=== PATIENT | male | born 1950 | race Caucasian/White ===

== ENCOUNTER → 2017-01-14 | Outpatient (CLI) | payer OTHER ==
[~2017-01-14] MED LIST: ASPI81TA28 PO; B-COTAB18 PO; CHOL1000 PO; FOLI800T PO; HYDR200T5 PO; LISI-461 PO; MAGN1CAP4 PO; NEBI2.5T2 PO; OMEG10007 PO; POTA99TA PO; PRLSR20 PO; SILD100T PO; SIMV80TA2 PO
[2017-01-14 15:48] LABS: BASO % 0.3 %; BASO ABS # 0.02 K/uL (0-0.2); COMPLETE YES; EOS % 0.7 %; HEMATOCRIT 43.1 % (42-52); IG% 0.2 %; LYMPH % 19.7 %; LYMPH ABS # 1.17 K/uL (1.2-3.4); MEAN CELL VOLUME 98.4 fL (80-100); MEAN CORPUSCULAR HEMOGLOBIN 31.5 pg (25-34); MEAN PLATELET VOLUME 10.3 fL (7.4-10.4); MONO % 5.7 %; NEUT % 73.4 %; PLATELET COUNT 222 K/uL (130-400); RED BLOOD COUNT 4.38 M/uL (4.7-6.1); WHITE BLOOD COUNT 5.93 K/uL (4.8-10.8)
[2017-01-14 16:58] LABS: BLOOD UREA NITROGEN 21 mg/dl (7-18); BUN/CREATININE RATIO 21.5 (10-20); CALCIUM 8.7 mg/dl (8.5-10.1); CARBON DIOXIDE 26 mmol/L (21-32); CHLORIDE 111 mmol/L (98-107); CREATININE 0.98 mg/dl (0.60-1.40); GLUCOSE 96 mg/dl (70-99); POTASSIUM 4.2 mmol/L (3.5-5.1); SODIUM 144 mmol/L (136-145)
== END | disposition home or self-care (01) ==
LOC: C.CPL 14:44
PROVIDERS: ATTEND Orthopaedic Surgery
DX: M75.121 Complete rotator cuff tear or rupture of right shoulder, not specified as traumatic (principal); Z01.812 Encounter for preprocedural laboratory examination; Z01.810 Encounter for preprocedural cardiovascular examination

== ENCOUNTER → 2017-01-28 | Day surgery (SDC) | payer OTHER ==
[2017-01-14 09:50] VITALS: Ht 180.3 cm; Wt 86.4 kg
[~2017-01-28] VITALS: Ht 180.3 cm; Wt 86.4 kg
[~2017-01-28] MED LIST changes: +ATROPINE SULFATE 0.1 MG/ML 5ML SYR IV PRN; +BUPIVACAINE/EPINEPHRINE 0.25% 1:200,000 30 ML VIAL ONE; +CEFAZOLIN 2000 MG/60 ML D5W IV SCH; +EpHEDrine SULFATE INJ 50 MG/ML AMP IV PRN; +EpINEphrine INJ 1MG/ML AMP 1 MG/ML AMP ONE; +FENTANYL CITRATE INJ 50 MCG/1 ML 2 ML VIAL ONE; +GLYCOPYRROLATE INJ 0.2 MG/ML VIAL ONE; +HYDR2TAB48 PO; +HYDROmorphone INJ 1 MG/ML SYR IV PRN; +HydrALAZINE HCL 20 MG/ML VIAL IV. PRN; +HydrALAZINE HCL 20 MG/ML VIAL ONE; +KETO10TA PO; +KETOROLAC TROMETHAMINE 30 MG/ML VIAL IV PRN; +KETOROLAC TROMETHAMINE 30 MG/ML VIAL IV STA; +KETOROLAC TROMETHAMINE 30 MG/ML VIAL ONE; +LACTATED RINGER'S 1000ML 1,000 ML IV SCH; +LIDOCAINE HCL 1% MPF 2 ML VIAL ONE; +LIDOCAINE HCL 2% 2 ML VIAL (20MG/ML) ONE; +MIDAZOLAM HCL 1 MG/ML 2ML VIAL IV ONE; +MIDAZOLAM HCL 1 MG/ML 2ML VIAL ONE; +NEOSTIGMINE METHYLSULFATE 5 MG/5 ML SYR ONE; +NURSING VERBAL MED ORDER ONE; +ONDANSETRON INJ 2 MG/ML 2 ML VIAL ONE; +OXYCODONE/ACETAMINOPHEN 5-325 TAB PO PRN; +PROPOFOL IV EMULSION 10 MG/ML 20 ML VIAL IV ONE; +ROCURONIUM BROMIDE 10 MG/ML 5 ML VIAL ONE; +ROPIVACAINE 0.5% 5 MG/ML 30 ML VIAL ONE; +SODIUM CHLORIDE 0.9% 1000ML 1,000 ML IV SCH; +SODIUM CHLORIDE 0.9% INJ 10 ML VIAL ONE; +Tumeric
--- NOTE | 2017-01-28 06:40 | History & Physical Bridge Note ---
H&P Re-Evaluation Bridge Note: I have examined the patient, reviewed the History & Physical and in the interval since the performance of the History & Physical I have noted the following changes of clinical significance: No changes noted
--- NOTE | 2017-01-28 09:50 | [facility] Post Operative Brief Note ---
Immediate Operative Summary Operative Date Jan 28, 2017. Pre-Operative Diagnosis Right Shoulder Medium Rotator Cuff Tear Post-Operative Diagnosis Same Procedure(s) Performed Right Shoulder Arthroscopy, Medium Rotator Cuff Repair, Acromioplasty, Biceps Tenodesis Surgeon Dr. Mcgovern Assistant Manager/Embalmer Surgeon(s) Tanner Rose PA-C Estimated Blood Loss 5 ml Findings as above Specimens None Complication(s) None Disposition Recovery Room / PACU
--- NOTE | 2017-01-28 09:50 | Discharge Instructions-SurgCtr ---
Discharge Instructions Date of Service Jan 28, 2017. Visit Reason for Visit: Full Thickness Rotator Cuff Tear Discharge Discharge Diagnosis / Problem: SAME VAL Discharge Goals Goal(s): Decrease discomfort, Improve function Medications Stopped Medications Name(s): Fish Oil and ASA last dose 1 week ago Restart Stopped Medication(s): MAY RESTART 01/28/2017 Activity Recommendations Activity Limitations: as noted below Lifting Limitations: until after follow-up appointment Exercise/Sports Limitations: until after follow-up appointment Shower/Bathe: tomorrow Anesthesia . Post Anesthesia Instructions: If you have had General Anesthesia or IV Sedation: * Do not drive today. * Resume driving when surgeon permits. * Do not make important decisions or sign legal documents today. * Call surgeon for: 1. Temperature elevations greater than 101 degrees F. 2. Uncontrollable pain. 3. Excessive bleeding. 4. Persistent nausea and vomiting. 5. Medication intolerance (nausea, vomiting or rash). * For nausea and vomiting use only clear liquids such as: tea, soda, bouillon until nausea subsides, then gradually increase diet as tolerated. * If you have any concerns or questions, call your surgeon's office. If physician is unavailable and it is an emergency, call 911 or go to the nearest emergency room. . Instructions / Follow-Up Instructions / Follow-Up MEDICATIONS: * Resume previous medications unless instructed otherwise by your surgeon. * Always take pain medication on a full stomach or with food to avoid upset stomach. * Do not drink alcohol or drive while taking narcotics. * Ibuprofen or Tylenol may be taken if narcotic not needed. SPECIAL CARE INSTRUCTIONS: __ None _X_ Keep extremity elevated and iced x 48 hours; apply ice 20-30 minutes 8-10 times/day. May remove at night. __ Sling __24 hrs/day __ Remove at night _X_ Shoulder Immobilizer (MAY REMOVE AFTER 48 HOURS ONLY TO SHOWER AND FOR THERAPY) _X_ 24 hrs/day __ Remove at night _X_ Dressing __ Maintain until seen in office, may shower with plastic over site _X_ Remove dressings in 24-48 hours and then may shower _X_ Cover incisions with band-aids after showering __ Do not remove steri-strips Call physician if chills or temperature rises above 102 degrees or pain unrelieved by prescribed pain medications at . . Diet Recommendations Home Diet: no limitations Fluid Restriction: None Procedures Procedures Performed: Right Shoulder Arthroscopy, Medium Rotator Cuff Repair, Acromioplasty, Biceps Tenodesis Pending Studies Studies pending at discharge: no Work Instructions Return To Work: after follow-up Lifting Limitations: NO LIFTING WITH RIGHT ARM Medical Emergencies . Who to Call and When: Medical Emergencies: If at any time you feel your situation is an emergency, please call 911 immediately. . Non-Emergent Contact Non-Emergency issues call your: Primary Care Provider Call Non-Emergent contact if: you have a fever, temperature is above 101.5 . . "Provider Documentation" section prepared by Fahad Rose. .
[2017-01-28] MEDS: HYDROmorphone INJ 1 MG/ML SYR IV PRN ×4 (10:04→10:45)
[2017-01-28 12:15] VITALS: TEMP 36.5
--- NOTE | 2017-01-28 12:32 | Anesthesia Progress Nt - [facility] ---
Anesthesia Post Op Note Date & Time Jan 28, 2017 at 12:31 Vital Signs Pain Intensity: 5 Vital Signs Past 12 Hours Date Time Temp Pulse Resp B/P (MAP) Pulse Ox O2 Delivery O2 Flow Rate FiO2 01/28/17 12:01 79 14 01/28/17 12:01 36.4 78 12 147/88 94 Room Air 01/28/17 12:01 76 14 147/88 93 01/28/17 11:56 85 14 01/28/17 11:56 85 14 146/93 94 01/28/17 11:51 74 11 01/28/17 11:51 72 11 154/100 92 01/28/17 11:47 140/108 01/28/17 11:46 81 13 93 01/28/17 11:46 83 13 01/28/17 11:41 88 25 188/111 90 01/28/17 11:41 75 25 01/28/17 11:36 76 17 166/101 95 01/28/17 11:36 76 17 01/28/17 11:31 71 17 173/111 94 01/28/17 11:31 71 17 01/28/17 11:26 72 16 162/103 94 01/28/17 11:26 72 16 01/28/17 11:21 72 17 145/99 95 01/28/17 11:21 72 17 01/28/17 11:16 62 21 01/28/17 11:16 62 21 160/105 95 01/28/17 11:11 74 22 01/28/17 11:11 74 22 168/109 96 01/28/17 11:06 67 12 01/28/17 11:06 68 12 147/98 97 01/28/17 11:01 60 12 174/102 95 01/28/17 11:01 62 12 01/28/17 10:56 64 13 162/111 97 01/28/17 10:56 64 13 01/28/17 10:51 60 12 167/100 96 01/28/17 10:51 61 12 01/28/17 10:46 70 14 161/104 98 01/28/17 10:46 69 14 01/28/17 10:41 58 10 01/28/17 10:41 57 10 170/100 97 01/28/17 10:36 57 13 171/103 01/28/17 10:36 13 01/28/17 10:31 65 18 174/104 97 01/28/17 10:31 65 18 17 10:26 60 15 149/104 80 17 10:26 57 15 01/28/17 10:21 62 24 17 10:21 60 24 169/104 96 01/28/17 10:16 56 20 01/28/17 10:16 55 20 171/100 97 01/28/17 10:11 51 18 169/100 97 01/28/17 10:11 52 18 17 10:06 53 18 159/97 99 01/28/17 10:06 54 18 01/28/17 10:01 54 19 166/100 97 01/28/17 10:01 54 19 01/28/17 09:56 56 16 01/28/17 09:56 54 16 153/98 97 01/28/17 09:51 55 19 161/94 98 01/28/17 09:51 56 19 01/28/17 09:47 159/95 01/28/17 09:46 36.0 86 24 159/95 97 Room Air 4 Mask 01/28/17 08:06 0 01/28/17 08:05 56 01/28/17 08:05 56 27 99 01/28/17 08:04 164/108 01/28/17 08:01 140/101 01/28/17 08:00 55 01/28/17 08:00 55 28 98 01/28/17 07:56 171/112 01/28/17 07:55 56 01/28/17 07:55 56 26 98 01/28/17 07:51 169/103 01/28/17 07:50 58 01/28/17 07:50 58 23 98 01/28/17 07:46 163/101 01/28/17 07:45 64 30 100 01/28/17 07:45 66 01/28/17 07:41 147/94 01/28/17 07:40 49 17 07:35 52 01/28/17 07:30 61 01/28/17 07:25 63 01/28/17 07:20 55 01/28/17 07:15 49 01/28/17 07:15 56 95 01/28/17 07:10 48 01/28/17 06:40 36.9 51 16 168/97 (120) 95 Room Air Notes Mental Status: alert / awake / arousable, participated in evaluation Pt Amnestic to Procedure: Yes Nausea / Vomiting: adequately controlled Pain: adequately controlled Airway Patency, RR, SpO2: stable & adequate BP & HR: stable & adequate Hydration State: stable & adequate Anesthetic Complications: no major complications apparent
[2017-01-28 12:56] VITALS: BP 151/91; PULSE 82; O2SAT 94
== END | disposition home or self-care (01) ==
LOC: X.SURG 01-14 14:38
PROVIDERS: ATTEND Orthopaedic Surgery
DX: M75.121 Complete rotator cuff tear or rupture of right shoulder, not specified as traumatic (principal); K21.9 Gastro-esophageal reflux disease without esophagitis; Z96.659 Presence of unspecified artificial knee joint; Z82.49 Family history of ischemic heart disease and other diseases of the circulatory system

== ENCOUNTER 2017-10-24 07:49 | Emergency (ER) | payer OTHER ==
[~2017-10-24] VITALS: Ht 177.8 cm; Wt 87.6 kg
[~2017-10-24 07:49] MED LIST changes: -ATROPINE SULFATE 0.1 MG/ML 5ML SYR IV PRN; -BUPIVACAINE/EPINEPHRINE 0.25% 1:200,000 30 ML VIAL ONE; -CEFAZOLIN 2000 MG/60 ML D5W IV SCH; -EpHEDrine SULFATE INJ 50 MG/ML AMP IV PRN; -EpINEphrine INJ 1MG/ML AMP 1 MG/ML AMP ONE; -FENTANYL CITRATE INJ 50 MCG/1 ML 2 ML VIAL ONE; -GLYCOPYRROLATE INJ 0.2 MG/ML VIAL ONE; -HYDR2TAB48 PO; -HYDROmorphone INJ 1 MG/ML SYR IV PRN; -HydrALAZINE HCL 20 MG/ML VIAL IV. PRN; -HydrALAZINE HCL 20 MG/ML VIAL ONE; -KETO10TA PO; -KETOROLAC TROMETHAMINE 30 MG/ML VIAL IV PRN; -KETOROLAC TROMETHAMINE 30 MG/ML VIAL IV STA; -KETOROLAC TROMETHAMINE 30 MG/ML VIAL ONE; -LACTATED RINGER'S 1000ML 1,000 ML IV SCH; -LIDOCAINE HCL 1% MPF 2 ML VIAL ONE; -LIDOCAINE HCL 2% 2 ML VIAL (20MG/ML) ONE; -MIDAZOLAM HCL 1 MG/ML 2ML VIAL IV ONE; -MIDAZOLAM HCL 1 MG/ML 2ML VIAL ONE; -NEOSTIGMINE METHYLSULFATE 5 MG/5 ML SYR ONE; -NURSING VERBAL MED ORDER ONE; -ONDANSETRON INJ 2 MG/ML 2 ML VIAL ONE; -OXYCODONE/ACETAMINOPHEN 5-325 TAB PO PRN; -PROPOFOL IV EMULSION 10 MG/ML 20 ML VIAL IV ONE; -ROCURONIUM BROMIDE 10 MG/ML 5 ML VIAL ONE; -ROPIVACAINE 0.5% 5 MG/ML 30 ML VIAL ONE; -SODIUM CHLORIDE 0.9% 1000ML 1,000 ML IV SCH; -SODIUM CHLORIDE 0.9% INJ 10 ML VIAL ONE
[2017-10-24 07:55] VITALS: TEMP 36.8; Ht 177.8 cm; Wt 87.6 kg
[2017-10-24] MEDS ORDERED: OPTIRAY 320 IV PRN (08:30)
[2017-10-24 08:44] LABS: EOS % 0.4 %; EOS ABS # 0.04 K/uL (0-0.5); HEMATOCRIT 46.4 % (42-52); HEMOGLOBIN 15.8 g/dL (14.0-18.0); LYMPH % 15.5 %; LYMPH ABS # 1.47 K/uL (1.2-3.4); MEAN CELL VOLUME 95.5 fL (80-100); MEAN CORPUSCULAR HEMOGLOBIN 32.5 pg (25-34); MEAN CORPUSCULAR HGB CONC 34.1 g/dl (32-36); MEAN PLATELET VOLUME 9.9 fL (7.4-10.4); MONO % 6.6 %; MONO ABS # 0.63 K/uL (0.11-0.59); NEUT % 76.4 %; NEUT ABS # 7.25 K/uL (1.4-6.5); PLATELET COUNT 131 K/uL (130-400); RED CELL DISTRIBUTION WIDTH CV 12.9 % (11.5-14.5); RED CELL DISTRIBUTION WIDTH SD 44.2 fL (36.4-46.3); WHITE BLOOD COUNT 9.49 K/uL (4.8-10.8)
--- NOTE | 2017-10-24 08:48 | DIAGNOSTIC IMAGING REPORT ---
CHEST ONE VIEW PORTABLE CLINICAL HISTORY: congestion COMPARISON STUDY: No previous studies for comparison. FINDINGS: The cardiac and mediastinal contours are normal. There is no evidence of focal pulmonary consolidation. There is no evidence of failure. No pleural effusions are visualized.[ There is minimal linear atelectatic change at the left lung base. The right upper lobe appears slightly hyperlucent and underlying emphysema cannot be excluded. IMPRESSION: No active disease in the chest. Electronically signed by: Mychal Fu M.D. 10/24/2017 8:47 AM Dictated Date/Time: 10/24/2017 8:46 AM
[2017-10-24 08:54] LABS: PTT PATIENT 21.9 SECONDS (21.0-31.0)
[2017-10-24 09:00] LABS: CALCIUM 8.2 mg/dl (8.5-10.1); CREATININE 0.98 mg/dl (0.60-1.40); POTASSIUM 3.5 mmol/L (3.5-5.1)
--- NOTE | 2017-10-24 09:43 | DIAGNOSTIC IMAGING REPORT ---
CT ANGIOGRAPHY HEAD COMBO CT DOSE: 725.03 mGy.cm CLINICAL HISTORY: Frontal headaches. History of cerebellar hemangioblastoma. TECHNIQUE: Noncontrast images were obtained the brain. CT angiography was then performed in a dynamic helical fashion during intravenous administration 91 cc of Optiray 320. MIP imaging was performed. A dose lowering technique was utilized adhering to the principles of ALARA. COMPARISON STUDY: None. FINDINGS: Noncontrast studies reveal no intra or extra-axial mass lesions. There is no CT evidence of acute cortical infarction. There is no acute hemorrhage. There are postsurgical changes of a left occipital craniotomy. 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 There are no major intracranial branch occlusions area there are no lesion suspicious for aneurysm. There is no evidence of dural venous sinus thrombosis. IMPRESSION: 1. Postsurgical changes within the left posterior fossa 2. No acute hemorrhage 3. No evidence of aneurysm. No evidence of major intracranial branch occlusion Electronically signed by: Mychal Fu M.D. 10/24/2017 9:42 AM Dictated Date/Time: 10/24/2017 9:38 AM
[2017-10-24] MEDS ORDERED: FRCT/ PO (10:46)
[2017-10-24 11:00] VITALS: BP 122/74; PULSE 72; O2SAT 97
--- NOTE | 2017-10-24 14:33 | EMERGENCY ROOM VISIT NOTE ---
History Report prepared by Mario: Glenys Lyn Under the Supervision of: Dr. Titus Abdullahi M.D. First contact with patient: 08:01 Chief Complaint: HEADACHE Stated Complaint: HEADACHE,PRESSURE History of Present Illness The patient is a 67 year old male who presents to the Emergency Room with complaints of persistent headache starting a couple weeks ago. The headache came on quickly over the first days but not thunderclap in description. He was not doing anything when his headache started. The headache is located behind his eyes bilaterally. He describes the pain as a pressure. He currently rates his discomfort as a 3-4/10 in severity. He reports some temporary relief from Tylenol. He has taken hydromorphone over the past 2 days which relieved his headache. 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 His current headache does not feel similar to the headaches he got with the cancer. He notes that he has been irritable and irrationally emotional recently. He was seen by his PCP and was treated for rebound headaches. He was on dexamethasone to little relief. He reports some brief dizzy spells. He notes that he had diarrhea 3 days ago. He feels like he developed a sinus infection this morning. He states that he had a rash on his arm recently and developed a rash on his leg upon arrival. He notes that he has been clearing brush outside recently. His mouth feels dry. He denies any falls. He notes that he had 2 cold sores 2 weeks ago after the headaches started. He was very concerned that the tumor may have recurred. Pt denies LOC, fevers, chills, diaphoresis, visual changes, neck pain, chest pain, breathing difficulties, nausea, vomiting, abdominal pain, back pain, melena, hematochezia, urinary symptoms, numbness, weakness, lymphadenopathy, or other complaints. Source of History: patient, spouse/significant other Onset: couple weeks ago Position: head Symptom Intensity: 3-4/10 Quality: pressure Timing: other (persistent) Modifying Factors (Relieving): tylenol, other (hydromorphone) Associated Symptoms: + diarrhea, + rash Note: Pt reports irritability, dizzy spells. Review of Systems See HPI for pertinent positives and negatives. A total of ten systems were reviewed and were otherwise negative. Past Medical & Surgical Medical Problems: (1) Hemangioblastoma of brain (2) Hypertension Family History Diabetes mellitus Heart disease Hypertension Social History Smoking Status: Never Smoker Alcohol Use: occasionally Marital Status: Housing Status: lives with significant other Occupation Status: retired Current/Historical Medications Scheduled Aspirin (Aspirin Ec), 81 MG PO QPM B-Complex Vitamins (Vitamin B Complex), 1 TAB PO QAM Cholecalciferol (Vitamin D3), 1 TAB PO BID Fish Oil (Thrall-3), 1 CAP PO BID Folic Acid (Folic Acid), 1 TAB PO QPM Hydroxychloroquine Sulfate (Plaquenil), 400 MG PO QPM Lisinopril (Zestril), 10 MG PO QAM Magnesium Oxide (Magnesium), 1 CAP PO QPM Nebivolol Hcl (Bystolic), 2.5 MG PO QAM Omeprazole (Prilosec), 20 MG PO QAM Potassium (Potassium), 1 TAB PO QPM Sildenafil Citrate (Viagra), 100 MG PO PRN Simvastatin (Zocor), 80 MG PO QPM Scheduled PRN Acetamin/Butalbital/Caffeine (Fioricet), 1 TAB PO Q4 PRN for Pain Miscellaneous Medications [Tumeric] Allergies Coded Allergies: No Known Allergies (Unverified , 10/24/17) Physical Exam Vital Signs Date Time Temp Pulse Resp B/P (MAP) Pulse Ox O2 Delivery O2 Flow Rate FiO2 10/24/17 11:00 72 16 122/74 97 10/24/17 09:40 63 16 131/78 96 Room Air 10/24/17 07:55 36.8 76 16 149/103 96 Room Air Physical Exam GENERAL: Awake, alert, well appearing, no distress HENT: Normocephalic, atraumatic. TM's normal. Oropharynx unremarkable. EYES: PERRL. EOMI. Normal conjunctiva. Sclera non-icteric. NECK: Supple. No nuchal rigidity. FROM. No bruit. RESPIRATORY: Breath sounds equal. No wheezes. No rhonchi. Normal respiratory effort. CARDIAC: Normal rate. Regular rhythm. No murmurs. No rubs. No JVD. GI: Soft, non distended. No tenderness to palpation. No rebound or guarding. No masses. RECTAL: Deferred. MUSCULOSKELETAL: Unremarkable. No edema. No discoloration. Gross motor strength symmetric. NEURO: Cranial nerves 2-12 grossly intact. Normal sensorium. No sensory or motor deficits noted. Speech normal. No pronator drift. Normal rapid alternating movements. Normal heel to chu. SKIN: No jaundice noted. Erythematous patch proximal lateral to the right knee. LYMPH: No adenopathy. Medical Decision & Procedures ER Provider Diagnostic Interpretation: Radiology results as stated below per my review and radiologist interpretation: CHEST ONE VIEW PORTABLE CLINICAL HISTORY: congestion COMPARISON STUDY: No previous studies for comparison. FINDINGS: The cardiac and mediastinal contours are normal. There is no evidence of focal pulmonary consolidation. There is no evidence of failure. No pleural effusions are visualized.[ There is minimal linear atelectatic change at the left lung base. The right upper lobe appears slightly hyperlucent and underlying emphysema cannot be excluded. IMPRESSION: No active disease in the chest. Electronically signed by: Mychal Fu M.D. 10/24/2017 8:47 AM Dictated Date/Time: 10/24/2017 8:[address] ANGIOGRAPHY HEAD COMBO CT DOSE: 725.03 mGy.cm CLINICAL HISTORY: Frontal headaches. History of cerebellar hemangioblastoma. TECHNIQUE: Noncontrast images were obtained the brain. CT angiography was then performed in a dynamic helical fashion during intravenous administration 91 cc of Optiray 320. MIP imaging was performed. A dose lowering technique was utilized adhering to the principles of ALARA. COMPARISON STUDY: None. FINDINGS: Noncontrast studies reveal no intra or extra-axial mass lesions. There is no CT evidence of acute cortical infarction. There is no acute hemorrhage. There are postsurgical changes of a left occipital craniotomy. 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 There are no major intracranial branch occlusions area there are no lesion suspicious for aneurysm. There is no evidence of dural venous sinus thrombosis. IMPRESSION: 1. Postsurgical changes within the left posterior fossa 2. No acute hemorrhage 3. No evidence of aneurysm. No evidence of major intracranial branch occlusion Electronically signed by: Mychal Fu M.D. 10/24/2017 9:42 AM Dictated Date/Time: 10/24/2017 9:38 AM Laboratory Results 10/24/17 08:30 Red Blood Count 4.86, Mean Corpuscular Volume 95.5, Mean Corpuscular Hemoglobin 32.5, Mean Corpuscular Hemoglobin Concent 34.1, Mean Platelet Volume 9.9, Neutrophils (%) (Auto) 76.4, Lymphocytes (%) (Auto) 15.5, Monocytes (%) (Auto) 6.6, Eosinophils (%) (Auto) 0.4, Basophils (%) (Auto) 0.0, Neutrophils # (Auto) 7.25, Lymphocytes # (Auto) 1.47, Monocytes # (Auto) 0.63, Eosinophils # (Auto) 0.04, Basophils # (Auto) 0.00 10/24/17 08:30 Test 10/24/17 08:30 White Blood Count 9.49 K/uL (4.8-10.8) Red Blood Count 4.86 M/uL (4.7-6.1) Hemoglobin 15.8 g/dL (14.0-18.0) Hematocrit 46.4 % (42-52) Mean Corpuscular Volume 95.5 fL (80-100) Mean Corpuscular Hemoglobin 32.5 pg (25-34) Mean Corpuscular Hemoglobin Concent 34.1 g/dl (32-36) Platelet Count 131 K/uL (130-400) Mean Platelet Volume 9.9 fL (7.4-10.4) Neutrophils (%) (Auto) 76.4 % Lymphocytes (%) (Auto) 15.5 % Monocytes (%) (Auto) 6.6 % Eosinophils (%) (Auto) 0.4 % Basophils (%) (Auto) 0.0 % Neutrophils # (Auto) 7.25 K/uL (1.4-6.5) Lymphocytes # (Auto) 1.47 K/uL (1.2-3.4) Monocytes # (Auto) 0.63 K/uL (0.11-0.59) Eosinophils # (Auto) 0.04 K/uL (0-0.5) Basophils # (Auto) 0.00 K/uL (0-0.2) RDW Standard Deviation 44.2 fL (36.4-46.3) RDW Coefficient of Variation 12.9 % (11.5-14.5) Immature Granulocyte % (Auto) 1.1 % Immature Granulocyte # (Auto) 0.10 K/uL (0.00-0.02) Erythrocyte Sedimentation Rate 5 mm/hr (0-14) Prothrombin Time 10.0 SECONDS (9.0-12.0) Prothromb Time International Ratio 1.0 (0.9-1.1) Activated Partial Thromboplast Time 21.9 SECONDS (21.0-31.0) Partial Thromboplastin Ratio 0.8 Anion Gap 9.0 mmol/L (3-11) Est Creatinine Clear Calc Drug Dose 74.5 ml/min Estimated GFR () 91.4 Estimated GFR (Non- 78.9 BUN/Creatinine Ratio 23.8 (10-20) Calcium Level 8.2 mg/dl (8.5-10.1) C-Reactive Protein 1.12 mg/dl (0-0.29) Lyme Disease IgG Antibody NEG (NEG) Lyme Disease IgM Antibody NEG (NEG) Laboratory results reviewed by me ED Course 0809: The patient was evaluated in room A9B. A complete history and physical exam was performed. 1039: I reevaluated the patient. Discussed results and discharge instructions: He verbalized understanding and agreement. The patient is ready for discharge. Medical Decision Prior records/ancillary studies reviewed. Triage Nursing notes reviewed and agree them. The patient's history was concerning for headache. Differential diagnosis: Etiologies such as migraine headache, tumor, headache, sinusitis, meningitis, CO exposure, ICH, SAH, infection, sinus thrombosis, arterial dissection, as well as others were entertained. Physical examination findings: As above. Non-focal. No meningeal findings. Clinically the patient looks well. ER treatment provided: Patient declined analgesia in the emergency department On reassessment the patient felt better. Diagnostics interpreted by me: The labs revealed an unremarkable CBC and chemistry panel. Lyme titer negative. ESR negative. CRP minimally elevated. Imaging studies: Noncontrast CT and CT angiogram as above. Clinically patient is doing well. He has had symptoms for over 2 weeks. He is nontoxic. He has no fever or white count. He had no meningeal findings. He had no flulike symptoms to suggest a meningitis or encephalitis. His main concern was about a recurrence of his brain tumor and this does not appear to be the case. There is no evidence of aneurysm, mass, CVA, or other abnormality. He has an outpatient MRI pending. I did discuss prescription management as well as referral to neurology. The patient will follow up with his primary physician. If he worsens in any way or other symptoms develop he will come back to the ER for reevaluation. By the evaluation outlined above emergent etiologies such as meningitis, sinusitis, CO exposure, ICH, SAH, infection, temporal arteritis, tumor, sinus thrombosis, arterial dissection, as well as others were deemed relatively unlikely. The patient and were informed about the findings as listed above. All questions were answered and they were pleased with the treatment. Return instructions were outlined and the patient was discharged in stable condition. Outpatient prescription management: Fioricet Referral: The patient was referred back to his primary care physician for follow-up in 2 to 3 days for a recheck of the current condition. Patient was also referred to neurology. Medication Reconcilliation Current Medication List: was personally reviewed by me Blood Pressure Screening Patient's blood pressure: Elevated blood pressure Blood pressure disposition: Elevated BP felt to be situational Impression Primary Impression: Headache Scribe Attestation The scribe's documentation has been prepared under my direction and personally reviewed by me in its entirety. I confirm that the note above accurately reflects all work, treatment, procedures, and medical decision making performed by me. Departure Information Dispostion Home / Self-Care Prescriptions Acetamin/Butalbital/Caffeine (FIORICET) 1 Ea Tab 1 TAB PO Q4 Y for Pain, #14 TAB Prov: Titus Abdullahi MD 10/24/17 Referrals Lashonda Leroy D.O. (PCP) Eugene Oates M.D. Forms HOME CARE DOCUMENTATION FORM, IMPORTANT VISIT INFORMATION Patient Instructions My [facility] Additional Instructions HEADACHE INSTRUCTIONS: Rest today in a quiet, peaceful, dark environment and get a full 8-10 hrs of sleep tonight. Avoid loud noises, smoke/smoking, alcohol, bright lights, stress, or physical exertion today to minimize the chance the headache may return. Continue current medications. Fioricet: Take 1 every 4 hours as needed for headache. Do not drive if taking. Do not mix with extra Tylenol. Ibuprofen(Motrin, Advil) may be used for fever or pain. Use 600mg every six hours as needed. Take with food. Avoid using more than 2400mg in a 24 hour period. Do not use 2400mg per day for more than three consecutive days without physician direction. Prolonged inappropriate use can lead to stomach upset or ulcers. Return to the ER for passing out, worsening headache, vision problems, neck stiffness/pain, fevers, vomiting, worsening of your condition, or as needed. Follow up with your primary physician in 2-3 days for a recheck of your current condition. Call [facility] neurology for follow-up appointment. The numbers listed below under Dr. Oates.
== END 2017-10-24 11:01 | disposition home or self-care (01) ==
LOC: C.EDB 07:50 → C.EDA 11:01
DX: R51 Headache (principal); I10 Essential (primary) hypertension; Z85.841 Personal history of malignant neoplasm of brain; Z83.3 Family history of diabetes mellitus; Z82.49 Family history of ischemic heart disease and other diseases of the circulatory system; Z79.82 Long term (current) use of aspirin; Z79.899 Other long term (current) drug therapy